=== PATIENT | female | born 1990 | race Caucasian/White ===

== ENCOUNTER 2017-09-29 13:48 | Emergency (ER) | payer OTHER ==
[2017-09-29] MEDS ORDERED: NS 0.9% 1000 ML* 1,000 ML IV ONE (14:06)
[2017-09-29 14:23] LABS: Hematocrit 39 % (35-47); Hemoglobin 13.4 g/dl (12.0-16.0); Mean Corpuscular HGB Conc 35 g/dl (31-36); Mean Corpuscular Hemoglobin 31 pg (27-31); Mean Corpuscular Volume 90 fL (80-97); Mean Platelet Volume 8.4 um3 (7.4-10.4); Platelet Count 202 10^3/ul (150-450); Red Blood Count 4.34 10^6/ul (4.00-5.40); Red Cell Distribution Width 13 % (10.5-15)
[2017-09-29 14:34] LABS: INR 0.88 (0.77-1.02)
[2017-09-29 14:49] LABS: EGFR Non-African American 108.5 (>60)
--- NOTE | 2017-09-29 14:59 | RAD ---
INDICATION: 27 weeks . Abdomen to evaluate for free fluid COMPARISON: None TECHNIQUE: Limited transverse and longitudinal scans of the 4 quadrants of the abdomen were obtained to assess for free fluid. FINDINGS: No free fluid is identified. IMPRESSION:A LIMITED EXAMINATION DEMONSTRATES NO FREE FLUID
[2017-09-29 15:39] VITALS: BP 129/75
[2017-09-29 15:39] LABS: Urine Appearance Clear; Urine Blood Negative (Negative); Urine Color Yellow; Urine Ketones Negative (Negative); Urine Protein Negative (Negative); Urine Red Blood Cell Absent (Absent); Urine Specific Gravity 1.011 (1.010-1.030); Urine Urobilinogen Negative (Negative); Urine White Blood Cell Trace(0-5/hpf) (Absent)
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
[2017-09-29 17:24] LABS: ABS Basophils 0 10^3/ul (0-0.2); ABS Eosinophils 0.1 10^3/ul (0-0.6); ABS Lymphocytes 1.4 10^3/ul (1.0-4.8); ABS Monocytes 0.6 10^3/ul (0-0.8); ABS Neutrophils 6.9 10^3/ul (1.5-7.7); ABS Nucleated RBC 0 10^3/ul; Eosinophil % 0.6 % (0-6); Lymphocyte % 15.8 % (25-47); Nucleated Red Blood Cells % 0
== END 2017-09-29 15:40 | disposition other institution (70) ==
LOC: ED 13:48
DX: O9A.212 Injury, poisoning and certain other consequences of external causes complicating pregnancy, second trimester (principal); S39.91XA Unspecified injury of abdomen, initial encounter; S29.9XXA Unspecified injury of thorax, initial encounter; V49.9XXA Car occupant (driver) (passenger) injured in unspecified traffic accident, initial encounter; Y92.410 Unspecified street and highway as the place of occurrence of the external cause; Z3A.27 27 weeks gestation of pregnancy
CPT/HCPCS: 36415; 76705; 80053; 81003; 81015; 83030; 83605; 83690; 85025; 85610; 85730; 86140; 87086; 99283

== ENCOUNTER 2017-12-04 11:00 | Emergency (ER) | payer OTHER ==
--- NOTE | 2017-12-04 11:28 | ED ---
Neurological HPI - HPI Summary HPI Summary: This patient is a 27 year old F brought into [facility] accompanied by her parents with a chief complaint of left sided facial weakness, droop, and numbness since yesterday, 12/03/17. Pt endorses a weapy left eye and inability to fully close left eye. Pt denies any weakness, numbness, or paresthesia elsewhere, denies visual changes, denies knowledge of any recent insect bites, and denies PMHx lyme's disease. Pt's OB is Dr. Poe. - History of Current Complaint Chief Complaint: EDNeurologicalDeficit Stated Complaint: LT SIDE FACIAL DROOPING Time Seen by Provider: 12/04/17 11:09 Hx Obtained From: Patient Hx Last Menstrual Period: 37 weeks Onset/Duration: Sudden Onset, Started days ago, Still Present Timing: Constant Onset Severity: Mild Current Severity: Mild Neurological Deficit Location: Facial - left Pain Intensity: 0 Pain Scale Used: 0-10 Numeric Character: Paralysis, Sensory Loss Aggravating: Nothing Alleviating: Nothing Associated Signs and Symptoms: Positive: Weakness - face, nowhere else, Numbness - face, nowhere else. Negative: Visual Changes, Fever - Allergy/Home Medications Allergies/Adverse Reactions: Allergies Allergy/AdvReac Type Severity Reaction Status Date / Time No Known Allergies Allergy Verified 12/04/17 11:06 PMH/Surg Hx/FS Hx/Imm Hx Endocrine/Hematology History: Denies: Hx Diabetes, Hx Thyroid Disease Cardiovascular History: Reports: Hx Hypertension - gestational Denies: Hx Pacemaker/ICD Respiratory History: Denies: Hx Asthma, Hx Chronic Obstructive Pulmonary Disease (COPD) GI History: Denies: Hx Ulcer History: Denies: Hx Renal Disease Musculoskeletal History: Reports: Hx Back Problems, Other Musculoskeletal History - chronic pain Sensory History: Reports: Hx Contacts or Glasses Denies: Hx Hearing Aid Opthamlomology History: Reports: Hx Contacts or Glasses Neurological History: Reports: Other Neuro Impairments/Disorders - PAIN CLINIC PATIENT Psychiatric History: Reports: Hx Anxiety, Hx Depression, Other Psychiatric Issues/Disorders - ADD Denies: Hx Panic Disorder - Surgical History Surgery Procedure, Year, and Place: MARCH 2011 - APPENDECTOMY-. LASER EYE RETINAL TEAR REPAIR 11/2013-NO METAL SEE OP REPORT IN OTHER FACILITY. 1996 - TONSILLECTOMY Infectious Disease History: No Infectious Disease History: Denies: Hx Clostridium Difficile, Hx Hepatitis, Hx Human Immunodeficiency Virus (HIV), Hx of Known/Suspected MRSA, Hx Shingles, Hx Tuberculosis, Hx Known/ Suspected VRE, Hx Known/Suspected VRSA, History Other Infectious Disease, Traveled Outside the [place] in Last 30 Days - Family History Known Family History: Negative: Hypertension - Social History Lives: With Family Alcohol Use: None Substance Use Type: Reports: None Smoking Status (MU): Never Smoked Tobacco Review of Systems Positive: Other - 37 weeks . Negative: Fever Positive: Other - left eye unable to close fully, weapy. Negative: Photophobia , Blurred Vision, Diplopia Positive: no symptoms reported Positive: Decreased ROM - left face Positive: Weakness - left face, Numbness - left face All Other Systems Reviewed And Are Negative: Yes Physical Exam - Summary Physical Exam Summary: Appearance: Well appearing, no pain distress Skin: warm, dry, reflects adequate perfusion Head/face: left facial palsy Eyes: EOMI, IRIS ENT: normal Neck: supple, non-tender Respiratory: CTA, breath sounds present Cardiovascular: RRR, pulses symmetrical Abdomen: non-tender, distended Bowel: present Musculoskeletal: normal, strength/ROM intact Neuro: normal, sensory motor intact, A&Ox3 Triage Information Reviewed: Yes Vital Signs On Initial Exam: Initial Vitals Temp Pulse Resp BP Pulse Ox 97.5 F 89 18 138/117 100 12/04/17 11:02 12/04/17 11:02 12/04/17 11:02 12/04/17 11:02 12/04/17 11:02 Vital Signs Reviewed: Yes Diagnostics - Vital Signs Vital Signs Temp Pulse Resp BP Pulse Ox 12/04/17 11:02 97.5 F 89 18 138/117 100 - Laboratory Result Diagrams: 12/04/17 11:29 12/04/17 11:29 Lab Statement: Any lab studies that have been ordered have been reviewed, and results considered in the medical decision making process. NIH Scale - NIH Scale Level of Consciousness: Alert/Keenly Responsive Ask Patient the Month and His/Her Age: Both Correct Ask Pt to Open/Close Eyes and Hand Leather Trimmer/Release Non-Paretic Hand: Both Correctly Best Gaze (Only Horizontal Eye Movement): Normal Visual Field Testing: No Visual Loss Facial Paresis-Pt to Smile & Close Eyes or Grimace Symmetry: Partial Paralysis Motor Function - Right Arm: No Drift-Holds 10 Seconds Motor Function - Left Arm: No Drift-Holds 10 Seconds Motor Function - Right Leg: No Drift-Holds 10 Seconds Motor Function - Left Leg: No Drift-Holds 10 Seconds Limb Ataxia-Must be out of Proportion to Weakness Present: Absent Sensory (Use Pinprick to Test Arms/Legs/Trunk/Face): Normal Best Language (Describe Picture, Name Items): No Aphasia Dysarthria (Read Several Words): Normal Extinction and Inattention: No Abnormality Total Score: 2 Course/Dx - Course Course Of Treatment: A 27-year-old F presents to the ED with a CC of left sided facial droop and paralysis since yesterday. (+) weapy eye, unable to fully close left eye. (-) numbness, plegia, paresis elsewhere in body. PMHx gestational HTN. In the ED course, pt was given prednisone. Pt shows squamous cells and bacteria in her urine, and elevated alk phosphotase. - Differential Dx Differential Diagnoses Neuro: Positive: Zhu's Palsy, Eclampsia - - Diagnoses Provider Diagnoses: Zhu's palsy - Physician Notifications Discussed Care Of Patient With: Piter Akbar Time Discussed With Above Provider: 11:30 Instructed by Provider To: Other - will see pt in ED - Critical Care Time Critical Care Time: 30-74 min Discharge - Sign-Out/Discharge Documenting (check all that apply): Patient Departure - discharge - Discharge Plan Condition: Stable Disposition: HOME Patient Education Materials: Zhu Palsy (ED) Referrals: Stacy Ruiz MD [Primary Care Provider] - 3 Days Additional Instructions: Return to the emergency department for any new or worsening symptoms. - Billing Disposition and Condition Condition: STABLE Disposition: Home - Attestation Statements Document Initiated by Nelli: Yes Documenting Scribe: Julian Khoury Provider For Whom Nelli is Documenting (Include Credential): Dr. Fish Newman MD Scribe Attestation: Julian Magaña scribed for Dr. Fish Newman MD on 12/04/17 at 1428. Scribe Documentation Reviewed: Yes Provider Attestation: The documentation as recorded by the Julian salazar accurately reflects the service I personally performed and the decisions made by me, Dr. Fish Newman MD Consult Consult: [id number] Dr. Poe: recommends urinanylsis. If pt still hypertensive, recommends send to L and D for evaluation/further monitoring. 1330 Dr. Chavez: recommended 24 hour urine protein, will see tomorrow in their office.
[2017-12-04 11:39] LABS: ABS Basophils 0 10^3/ul (0-0.2); ABS Eosinophils 0.1 10^3/ul (0-0.6); ABS Lymphocytes 1.7 10^3/ul (1.0-4.8); ABS Monocytes 0.6 10^3/ul (0-0.8); ABS Neutrophils 5.2 10^3/ul (1.5-7.7); ABS Nucleated RBC 0 10^3/ul; Hematocrit 39 % (35-47); Hemoglobin 13.1 g/dl (12.0-16.0); Lymphocyte % 22.7 % (25-47); Mean Corpuscular HGB Conc 34 g/dl (31-36); Mean Corpuscular Hemoglobin 29 pg (27-31); Mean Corpuscular Volume 86 fL (80-97); Mean Platelet Volume 8.6 um3 (7.4-10.4); Nucleated Red Blood Cells % 0.1; Platelet Count 187 10^3/ul (150-450); Red Blood Count 4.52 10^6/ul (4.00-5.40); Red Cell Distribution Width 14 % (10.5-15); White Blood Count 7.6 10^3/ul (3.5-10.8)
[2017-12-04 12:07] LABS: Urine Appearance Cloudy; Urine Blood Negative (Negative); Urine Color Yellow; Urine Ketones Negative (Negative); Urine Protein Negative (Negative); Urine Red Blood Cell Trace(0-2/hpf) (Absent); Urine Specific Gravity 1.013 (1.010-1.030); Urine Urobilinogen Negative (Negative); Urine White Blood Cell Trace(0-5/hpf) (Absent)
[2017-12-04 12:10] LABS: EGFR Non-African American 112.5 (>60)
[2017-12-04] MEDS ORDERED: predniSONE TAB* 20 MG PO ONE (13:18)
[2017-12-04 13:54] VITALS: BP 153/69
[2017-12-04] MEDS ORDERED: Artificial Tear OPHTH.OINT* 3.5 GM ONE (14:00)
--- NOTE | 2017-12-04 15:02 | CONS ---
NEUROLOGY CONSULTATION: DATE OF CONSULT: 12/04/17 LOCATION: The patient is in the emergency room. REFERRING PHYSICIAN: Dr. Newman. CHIEF COMPLAINT: Facial weakness. HISTORY OF PRESENT ILLNESS: Katie Glover is a 27-year-old woman who first noted some tearing of her left eye on Sunday. Her reports it began Sunday morning which was yesterday and she noted in the afternoon. This morning she noted that she had weakness of the left side of her face and she presented to the emergency room. Prior to Sunday she felt fine. She is in her third trimester and is due in mid to late December. She has not had any problems of headaches, ear pain, upper respiratory infections, fevers, or sore throats. No problems with cough. She has not had any bug bites, tick bites, or skin rashes. Her has been uncomplicated. There is no history of systemic disease. MEDICATIONS: Her only medication is sertraline 100 mg p.o. daily, vitamins. ALLERGIES: She does not have any drug allergies. REVIEW OF SYSTEMS: As is noted in the history of present illness. No recent eye infections or cold sores. No change in hearing. She notes that her taste has been altered in the last 2 days or so. No problems with headaches or visual changes. No double vision. PHYSICAL EXAM: She is well nourished and in her third trimester. Blood pressure was initially elevated at 138/117 but at the time of my examination is 130/80. Heart rate is in the 70s to 80s. Respiratory rate is 18 and oxygen saturation is 100% on room air. Heart is in a regular rate and rhythm without murmurs. There are no cervical bruits. Oral mucosa is moist and there is no erythema or lesions. Tympanic membranes are clear bilaterally. External auditory canals do not show any rashes. There are no cervical bruits. Lungs are clear. Neurologic Exam: Pupils react equally from 4.5 to 3 mm. There is no ptosis. Funduscopic exam reveals sharp discs bilaterally. Eye movements are normal. Facial musculature is notable for peripheral pattern left facial weakness. She is just barely able to close the left eye. Right facial strength looks normal. Facial sensation to light touch is symmetric. Hearing is intact bilaterally. Palate and tongue appear normal, palate rises symmetrically. There is no dysarthria. Motor Exam: Reveals normal strength in the limbs. There is no drift of any limbs. Sensory exam in the limbs is unremarkable. Reflexes are somewhat hypoactive but present and symmetric in upper and lower extremities. Plantar responses are flexor bilaterally. She is alert and oriented and is an excellent detailed historian. Memory is intact and language is fluent. She has normal attention, concentration, and good fund of knowledge. DIAGNOSTIC STUDIES/LAB DATA: Laboratory data from today is notable for a normal CBC other than lymphocyte count 22.7% which is borderline low. Monocytes are borderline elevated at 7.9%. Chemistries notable for alkaline phosphatase of 181 and otherwise a normal chemistry profile. IMPRESSION AND RECOMMENDATIONS: Zhu's palsy. It is incomplete at this point, just started yesterday. Typically this is due to herpes simplex virus type 1 reactivation. It is more common during . Lyme disease is in the differential but she does not have any headache, fever, stiff neck, history of tick bite, or rashes to suggest Lyme disease. Also, doxycycline is generally avoided during . Typically, recommend treatment with steroids for 7 day taper. Treatment with steroids has been shown to patient in recovery. Antivirals have been used also , but there has been no clear evidence of its beneficial. I put in a call to her OB to discuss the safety of using a 7-day course of prednisone in her third trimester. Her blood pressure was initially elevated but it was noted that she had a urinalysis which showed no protein and her blood pressure has come down to more normal ranges. We will discuss that with the OB as well. I have discussed my impression with Katie, her , and her mother who are present today. Told them the prognosis is usually for full recovery but there is a small percent of patients of prolonged or incomplete recovery. I explained the potential benefits of steroids as well as potential side effects including insomnia and anxiety. Also, weight gain and skin changes. If given the go ahead by her rectification printer, I will prescribe a 7-day course of prednisone. [id number]/[facility] #: [id number] MTDD
== END 2017-12-04 13:53 | disposition home or self-care (01) ==
LOC: ED 11:00
DX: G51.0 Bell's palsy (principal); R53.1 Weakness; Z34.93 Encounter for supervision of normal pregnancy, unspecified, third trimester
CPT/HCPCS: 36415; 80053; 81003; 81015; 85025; 86618; 87086; 99283; J7512

== ENCOUNTER 2017-12-11 13:49 | Inpatient (IN) | payer OTHER ==
[~2017-12-11 13:49] MED LIST: Dinoprostone* 10 MG VAG.SUPP VAGINAL ONE
[2017-12-11 14:34] LABS: ABS Basophils 0 10^3/ul (0-0.2); ABS Eosinophils 0 10^3/ul (0-0.6); ABS Lymphocytes 1.9 10^3/ul (1.0-4.8); ABS Monocytes 0.6 10^3/ul (0-0.8); ABS Neutrophils 6.6 10^3/ul (1.5-7.7); ABS Nucleated RBC 0 10^3/ul; Eosinophil % 0.5 % (0-6); Hematocrit 38 % (35-47); Hemoglobin 12.7 g/dl (12.0-16.0); Lymphocyte % 20.4 % (25-47); Mean Corpuscular HGB Conc 34 g/dl (31-36); Mean Corpuscular Hemoglobin 29 pg (27-31); Mean Corpuscular Volume 86 fL (80-97); Nucleated Red Blood Cells % 0.1; Platelet Count 199 10^3/ul (150-450); Red Cell Distribution Width 14 % (10.5-15); White Blood Count 9.1 10^3/ul (3.5-10.8)
[2017-12-11 14:59] LABS: Uric Acid 5.6 mg/dL (2.3-6.6)
--- NOTE | 2017-12-11 15:07 | HP ---
General Information - Reason for Visit pre eclampsia /cervical ripening - General Information Maternal Age: 27 Grav: 1 Para: 0 SAB: 0 IEA: 0 Estimated Due Date: 12/29/17 Determined By: Early Ultrasound Maternal Blood Type and Rh: B Positive - Results this Serology/RPR Result: Non-Reactive Rubella Result: Immune HBsAg Result: Negative HIV Result: Negative GBS Culture Result: Negative Past Medical History Delivery History: See Records Pertinent Past Medical History: See Records Pertinent Past Surgical History: See Records Pertinent Family History: See Records - Antepartal Records Antepartal Records: Reviewed, Complicated by: - preeclampsia Review of Systems Constitutional: Comfortable CV Complaint: No Respiratory: Shortness of Breath: No Gastrointestinal: No Nausea/Vomiting Genitourinary: No Dysuria, No Bleeding, No Leaking Fluid Musculoskeletal: No Complaint Neurological: No Headache Movement: Normal Exam Allergies/Adverse Reactions: Allergies No Known Allergies Allergy (Verified 12/04/17 11:06) Lab Values - Entire Visit: Laboratory Tests 12/11/17 12/11/17 14:21 14:21 WBC 9.1 RBC 4.40 Hgb 12.7 Hct 38 MCV 86 MCH 29 MCHC 34 RDW 14 Plt Count 199 MPV 9.0 Neut % (Auto) 72.3 Lymph % (Auto) 20.4 L [place] % (Auto) 6.6 Eos % (Auto) 0.5 Baso % (Auto) 0.2 Absolute Neuts (auto) 6.6 Absolute Lymphs (auto) 1.9 Absolute Monos (auto) 0.6 Absolute Eos (auto) 0 Absolute Basos (auto) 0 Absolute Nucleated RBC 0 Nucleated RBC % 0.1 Blood Type B Positive - Measurements Height: 5 ft 10 in Weight: 281 lb Weight in lbs: [phone] Body Mass Index (BMI): 40.3 Pre- Weight: 250 lb Weight Gained This : 31 lbs and 0 ozs - Abdominal Exam Abdomen Exam: Non-Tender - Ultrasound/Biophysical Profile Ultrasound Status: Not Done Targeted Exam Findings Cervical Exam: 1cm Effacement: 50% Station: 0 Presenting Part: Vertex Membrane Status: Intact EFM Findings - External Monitor Findings Baseline Heart Rate: 140 External Monitor Findings: Accelerations Present, No Pattern of Variable or Late Decelerations, Variability Moderate, Baseline Stable Contractions: None Assessment/Plan - Assessment pt 27 yo with pre eclampsia at 37 3/7 week. Pt to proceed with cervical ripening. Will place cervidil for ripening of cervix and improvement of Hays score - Obstetrical Risk Factors Obstetrical Risk Factors: PreEclampsia - Plan Plan: Cervical Ripening
[2017-12-12] MEDS ORDERED: Calcium Carbonate CHEW TAB* 500 MG (TUMS) PO PRN (00:03)
[2017-12-12] MEDS ORDERED: Calcium Carbonate CHEW TAB* 500 MG (TUMS) ONE (00:25)
[2017-12-12] MEDS ORDERED: OBEPIDURAL* 250 ML EPIDURAL ONE (08:28)
[2017-12-12] MEDS ORDERED: Oxytocin in LR* 20 UNITS/1,000 ML BAG IVPB SCH (09:00)
[2017-12-12] MEDS ORDERED: Sodium Citrate/Citric Acid* 15 ML UDC PO PRN (09:05)
[2017-12-12] MEDS ORDERED: Famotidine TAB* 20 MG PO PRN (09:05)
[2017-12-12] MEDS ORDERED: Phenylephrine IV* 40 MCG/ML 10 ML SYRINGE IV PUSH PRN ×2 (09:05)
[2017-12-12] MEDS ORDERED: EPHEDrine (Pressors)* 50 MG/ML VIAL IV PUSH PRN ×2 (09:05)
[2017-12-12 09:13] LABS: ABS Basophils 0 10^3/ul (0-0.2); ABS Eosinophils 0 10^3/ul (0-0.6); ABS Lymphocytes 1.5 10^3/ul (1.0-4.8); ABS Monocytes 0.7 10^3/ul (0-0.8); ABS Neutrophils 8.4 10^3/ul (1.5-7.7); ABS Nucleated RBC 0 10^3/ul; Eosinophil % 0.2 % (0-6); Hematocrit 38 % (35-47); Hemoglobin 12.9 g/dl (12.0-16.0); Lymphocyte % 13.9 % (25-47); Mean Corpuscular HGB Conc 34 g/dl (31-36); Mean Corpuscular Hemoglobin 29 pg (27-31); Mean Corpuscular Volume 86 fL (80-97); Mean Platelet Volume 8.9 um3 (7.4-10.4); Nucleated Red Blood Cells % 0.3; Platelet Count 182 10^3/ul (150-450); Red Blood Count 4.44 10^6/ul (4.00-5.40); Red Cell Distribution Width 14 % (10.5-15); White Blood Count 10.5 10^3/ul (3.5-10.8)
[2017-12-12] MEDS ORDERED: OBEPIDURAL* 250 ML EPIDURAL SCH (10:00)
[2017-12-12] MEDS: Sertraline* 100 MG TAB PO SCH (12:05)
--- NOTE | 2017-12-12 15:44 | PROCNOTE ---
[facility] OB: Delivery Note - Nursery Level of Nursery: Regular/Bedside - Perineum Perineal Injury: None/Intact Perineal Repair: None - Events Delivery Events of Note: Pitocin During Labor - pt with lots of pressure. pushed x2 . nuchal cord x3 .
[2017-12-12] MEDS ORDERED: Ibuprofen TAB* 600 MG PO PRN (19:24)
[2017-12-12] MEDS ORDERED: Acetaminophen TAB* 325 MG PO PRN (19:24)
[2017-12-12] MEDS ORDERED: Witch Hazel PAD* JAR TOPICAL PRN (19:24)
[2017-12-12] MEDS ORDERED: Glycerin ADULT SUPP PR PRN (19:24)
[2017-12-12] MEDS ORDERED: Dibucaine 1% 28.35 GM TUBE PR PRN (19:24)
[2017-12-12] MEDS ORDERED: Simethicone TAB* 80 MG TAB.CHEW PO SCH (21:00)
[2017-12-12] MEDS: Docusate CAP* 100 MG PO SCH (21:39)
[2017-12-13 07:13] LABS: ABS Basophils 0 10^3/ul (0-0.2); ABS Eosinophils 0.1 10^3/ul (0-0.6); ABS Lymphocytes 2.4 10^3/ul (1.0-4.8); ABS Monocytes 0.9 10^3/ul (0-0.8); ABS Neutrophils 7.8 10^3/ul (1.5-7.7); ABS Nucleated RBC 0 10^3/ul; Eosinophil % 0.7 % (0-6); Hematocrit 36 % (35-47); Hemoglobin 11.9 g/dl (12.0-16.0); Lymphocyte % 21.7 % (25-47); Mean Corpuscular HGB Conc 33 g/dl (31-36); Mean Corpuscular Hemoglobin 28 pg (27-31); Mean Corpuscular Volume 87 fL (80-97); Mean Platelet Volume 8.6 um3 (7.4-10.4); Nucleated Red Blood Cells % 0; Platelet Count 197 10^3/ul (150-450); Red Blood Count 4.18 10^6/ul (4.00-5.40); Red Cell Distribution Width 14 % (10.5-15); White Blood Count 11.2 10^3/ul (3.5-10.8)
[2017-12-13] MEDS: Docusate CAP* 100 MG PO SCH ×3 (08:47→21:10)
[2017-12-13] MEDS: Sertraline* 100 MG TAB PO SCH (08:47)
[2017-12-13] MEDS ORDERED: Ferrous Gluconate TAB* 324 MG TAB PO SCH (09:00)
[2017-12-14] MEDS: Sertraline* 100 MG TAB PO SCH (08:40)
[2017-12-14] MEDS: Docusate CAP* 100 MG PO SCH (08:40)
[2017-12-14 09:43] VITALS: BP 125/64
== END 2017-12-14 11:51 | disposition home or self-care (01) | DRG 560 ==
LOC: MCHOBOUT 13:49 → MCHOB 14:06
PROVIDERS: ADMIT Obstetrics & Gynecology; ATTEND Obstetrics & Gynecology
PROC: 3E033VJ Introduction of Other Hormone into Peripheral Vein, Percutaneous Approach (ICD-10-PCS; principal; 2017-12-11)
PROC: 10907ZC Drainage of Amniotic Fluid, Therapeutic from Products of Conception, Via Natural or Artificial Opening (ICD-10-PCS; 2017-12-11)
PROC: 10E0XZZ Delivery of Products of Conception, External Approach (ICD-10-PCS; 2017-12-11)
PROC: 3E0P7VZ Introduction of Hormone into Female Reproductive, Via Natural or Artificial Opening (ICD-10-PCS; 2017-12-11)
PROC: 4A1HXCZ Monitoring of Products of Conception, Cardiac Rate, External Approach (ICD-10-PCS; 2017-12-11)
DX: O14.94 Unspecified pre-eclampsia, complicating childbirth (principal); Z68.41 Body mass index [BMI] 40.0-44.9, adult; O99.344 Other mental disorders complicating childbirth; F90.9 Attention-deficit hyperactivity disorder, unspecified type; F42.9 Obsessive-compulsive disorder, unspecified; F32.9 Major depressive disorder, single episode, unspecified; F41.0 Panic disorder [episodic paroxysmal anxiety]; O69.81X0 Labor and delivery complicated by cord around neck, without compression, not applicable or unspecified; O69.89X0 Labor and delivery complicated by other cord complications, not applicable or unspecified; O99.214 Obesity complicating childbirth; Z3A.37 37 weeks gestation of pregnancy; Z37.0 Single live birth
CPT/HCPCS: 36415; 80053; 84550; 85025; 86850; 86900; 86901; A9270-GY

== ENCOUNTER 2019-02-23 14:09 | Emergency (ER) | payer OTHER ==
[2019-02-23 14:31] VITALS: BP 120/73
[2019-02-23] MEDS ORDERED: Albuterol 2.5 MG/3 ML NEB.SOL* (0.083%) INH ONE (14:46)
--- NOTE | 2019-02-23 14:53 | UC ---
Respiratory Complaint HPI - HPI Summary HPI Summary: Pt states has trouble breathing when they cough. Pt states experiencing SOB for the past 3-4 days along with sinus congestion. - History of Current Complaint Chief Complaint: UCGeneralIllness Stated Complaint: COUGH Time Seen by Provider: 02/23/19 14:32 Hx Obtained From: Patient Hx Last Menstrual Period: no periods ?: No Onset/Duration: Sudden Onset, Lasting Days Timing: Constant Severity Currently: Moderate Pain Intensity: 0 Character: Cough: Nonproductive Aggravating Factors: Exertion, Deep Breaths, Recumbent Position Alleviating Factors: Nothing Associated Signs And Symptoms: Positive: Dyspnea, Wheezing, Nasal Congestion, Hoarseness, Sinus Discomfort - Allergies/Home Medications Allergies/Adverse Reactions: Allergies Allergy/AdvReac Type Severity Reaction Status Date / Time No Known Allergies Allergy Verified 02/23/19 14:24 Home Medications: Home Medications Citalopram TAB* [CeleXA TAB*] 20 mg PO DAILY 02/23/19 [History Confirmed ] Dextroamphetamine/Amphetamine [Adderall 10 mg-] 1 tab PO DAILY 02/23/19 [ History Confirmed 02/23/19] Dm/PE/Acetaminophen/Doxylamine [Cold Multi-Symptom Night Liq] 237 ml PO ONCE [History Confirmed 02/23/19] PMH/Surg Hx/FS Hx/Imm Hx Previously Healthy: Yes - Surgical History Surgical History: Yes Surgery Procedure, Year, and Place: MARCH 2011 - APPENDECTOMY-. LASER EYE RETINAL TEAR REPAIR 11/2013-NO METAL SEE OP REPORT IN OTHER FACILITY. 1996 - TONSILLECTOMY - Family History Known Family History: Negative: Hypertension - Social History Alcohol Use: None Substance Use Type: None Smoking Status (MU): Never Smoked Tobacco - Immunization History Most Recent Influenza Vaccination: Unknown Most Recent Pneumonia Vaccination: 02/24 Review of Systems All Other Systems Reviewed And Are Negative: Yes ENT: Positive: Sore Throat, Nasal Discharge, Sinus Congestion, Sinus Pain/ Tenderness Respiratory: Positive: Cough Is Patient Immunocompromised?: No Physical Exam Triage Information Reviewed: Yes Appearance: Well-Nourished, Ill-Appearing, Pain Distress Vital Signs: Initial Vital Signs Temp 97.2 F 02/23/19 14:26 Pulse 71 02/23/19 14:26 Resp 16 02/23/19 14:26 BP 120/73 02/23/19 14:26 Pulse Ox 99 02/23/19 14:26 Vital Signs Reviewed: Yes Eye Exam: Normal ENT: Positive: Pharyngeal erythema - wiht pnd, TM bulging, Sinus tenderness Dental Exam: Normal Neck exam: Normal Respiratory Exam: Normal Respiratory: Positive: No accessory muscle use, Respiratory distress - mild, Wheezing, Inspiration Cardiovascular Exam: Normal Abdominal Exam: Normal Bowel Sounds: Positive: Present Musculoskeletal Exam: Normal Neurological Exam: Normal Psychological Exam: Normal Skin Exam: Normal Respiratory Course/Dx - Course Course Of Treatment: hx obtained, exam performed, meds reviewed, albuterol treatment given, treated for sinusitis and bronchitis - Differential Dx/Diagnosis Differential Diagnosis/HQI/PQRI: Bronchitis, Sinusitis Provider Diagnosis: Sinusitis, Bronchitis Discharge ED - Sign-Out/Discharge Documenting (check all that apply): Patient Departure All imaging exams completed and their final reports reviewed: No Studies - Discharge Plan Condition: Stable Disposition: HOME Prescriptions: Albuterol HFA INHALER* [Ventolin HFA Inhaler*] 2 puff INH Q4H PRN #1 mdi PRN Reason: Cough Azithromyxin ROBERT (NF) [Z-Robert (Zithromax) 250 mg tabs #6] 2 tab PO .TODAY, THEN 1 DAILY #6 tab predniSONE [Prednisone 20 MG TAB] 40 mg PO DAILY #10 tablet Patient Education Materials: Sinusitis (ED) Referrals: Stacy Ruiz MD [Primary Care Provider] - Additional Instructions: 1. take the medication as prescribed 2. Increase fluids 3. get rest 4. folow up if not improving. - Billing Disposition and Condition Condition: STABLE Disposition: Home - Attestation Statements Provider Attestation: I was available for consult. This patient was seen by the [facility]. The patient was not presented to, seen by, or examined by me. -
== END 2019-02-23 15:04 | disposition home or self-care (01) ==
LOC: UCEAST 14:09
DX: J40 Bronchitis, not specified as acute or chronic (principal); J32.9 Chronic sinusitis, unspecified
CPT/HCPCS: 99212; G0463

== ENCOUNTER 2019-04-17 07:28 | Emergency (ER) | payer OTHER ==
[2019-04-17 07:40] VITALS: BP 141/86
--- NOTE | 2019-04-17 07:55 | UC ---
Respiratory Complaint HPI - HPI Summary HPI Summary: 29-year-old woman comes in with a chief complaint of 5 days of cough and postnasal drip. With her cough she's having sore throat. She feels like she is coughing up a lung. Patient is not a smoker. She's tried [id number] medicines which do help briefly but then the symptoms come back. No sinus pressure. - History of Current Complaint Chief Complaint: UCRespiratory Stated Complaint: COUGH Time Seen by Provider: 04/17/19 07:41 Hx Last Menstrual Period: no periods Pain Intensity: 0 - Allergies/Home Medications Allergies/Adverse Reactions: Allergies Allergy/AdvReac Type Severity Reaction Status Date / Time No Known Allergies Allergy Verified 04/17/19 07:40 PMH/Surg Hx/FS Hx/Imm Hx Previously Healthy: Yes - Surgical History Surgical History: Yes Surgery Procedure, Year, and Place: MARCH 2011 - APPENDECTOMY-. LASER EYE RETINAL TEAR REPAIR 11/2013-NO METAL SEE OP REPORT IN OTHER FACILITY. 1996 - TONSILLECTOMY - Family History Known Family History: Negative: Hypertension - Social History Alcohol Use: Occasionally Substance Use Type: None Smoking Status (MU): Never Smoked Tobacco - Immunization History Most Recent Influenza Vaccination: Unknown Most Recent Pneumonia Vaccination: 02/24 Review of Systems All Other Systems Reviewed And Are Negative: Yes Constitutional: Positive: Other - see hpi Skin: Positive: Negative Eyes: Positive: Negative ENT: Positive: Sore Throat, Nasal Discharge Respiratory: Positive: Cough, Other - see hpi Cardiovascular: Positive: Negative Gastrointestinal: Positive: Negative Motor: Positive: Negative Neurovascular: Positive: Negative Musculoskeletal: Positive: Negative Neurological: Positive: Negative Psychological: Positive: Negative Is Patient Immunocompromised?: No Physical Exam Triage Information Reviewed: Yes Appearance: No Pain Distress, Well-Nourished, Ill-Appearing - mild Vital Signs: Initial Vital Signs Temp 97.2 F 04/17/19 07:34 Pulse 68 04/17/19 07:34 Resp 18 04/17/19 07:34 BP 141/86 04/17/19 07:34 Pulse Ox 96 04/17/19 07:34 Vital Signs Reviewed: Yes Eye Exam: Normal Eyes: Positive: Conjunctiva Clear ENT: Positive: Pharyngeal erythema, Nasal congestion, Nasal drainage, TMs normal Neck: Positive: Supple Respiratory: Positive: Lungs clear, Normal breath sounds, No respiratory distress - Patient does have coughing in clinic Cardiovascular: Positive: RRR Musculoskeletal: Positive: Strength Intact, ROM Intact Neurological: Positive: Alert, Muscle Tone Normal Psychological: Positive: Age Appropriate Behavior Skin Exam: Normal Respiratory Course/Dx - Course Course Of Treatment: DISCUSSED VIRAL VERSES BACTERIAL INFECTIONS AND THE ROLE OF ANTIBIOTICS. THE PATIENT PREFERS TO BE ON ANTIBIOTICS AT THIS TIME. - Differential Dx/Diagnosis Provider Diagnosis: Bronchitis with bronchospasm Discharge ED - Sign-Out/Discharge Documenting (check all that apply): Patient Departure All imaging exams completed and their final reports reviewed: No Studies - Discharge Plan Condition: Stable Disposition: HOME Prescriptions: Albuterol HFA INHALER* [Ventolin HFA Inhaler*] 2 puff INH Q4H PRN #1 mdi PRN Reason: Wheezing Azithromyxin ROBERT (NF) [Z-Robert (Zithromax) 250 mg tabs #6] 2 tab PO .TODAY, THEN 1 DAILY #6 tab Benzonatate CAP* [Tessalon 100 MG CAP*] 100 mg PO TID PRN #20 cap PRN Reason: Cough Fluticasone NASAL SPRAY 50MCG* [Flonase NASAL SPRAY 50MCG*] 2 spray BOTH NARES DAILY #1 btl Patient Education Materials: Acute Bronchitis (ED), Bronchospasm (ED) Referrals: Stacy Ruiz MD [Primary Care Provider] - Additional Instructions: FOLLOW UP WITH YOUR DOCTOR IF NOT COMPLETELY IMPROVED. GET REEVALUATED SOONER IF NOT IMPROVED OR WORSE OR ANY QUESTIONS OR CONCERNS. - Billing Disposition and Condition Condition: STABLE Disposition: Home
== END 2019-04-17 08:02 | disposition home or self-care (01) ==
LOC: UCEAST 07:28
DX: J40 Bronchitis, not specified as acute or chronic (principal); J98.01 Acute bronchospasm; J02.9 Acute pharyngitis, unspecified; R09.81 Nasal congestion
CPT/HCPCS: 99212; G0463